=== PATIENT | male | born 1995 | race Caucasian/White ===

== ENCOUNTER 2020-10-15 12:17 | Emergency (ER) | payer OTHER ==
[~2020-10-15 12:17] MED LIST: COLCHICINE0.6 M1 PO
[2020-10-15] MEDS ORDERED: COLCHICINE 0.60.6 MG PO (13:29)
== END 2020-10-15 13:35 | disposition home or self-care (01) ==
LOC: ER1 12:17
DX: M10.072 Idiopathic gout, left ankle and foot (principal)
CPT/HCPCS: 99283

== ENCOUNTER 2020-10-19 13:06 | Emergency (ER) | payer OTHER ==
[~2020-10-19 13:06] MED LIST changes: +COLCHICINE 0.60.6 MG PO
== END 2020-10-19 13:40 | disposition left against medical advice (07) ==
LOC: ER1 13:06
DX: M10.9 Gout, unspecified (principal); Z53.21 Procedure and treatment not carried out due to patient leaving prior to being seen by health care provider

== ENCOUNTER → 2020-10-29 | Outpatient (CLI) | payer OTHER | LOC: KOH-I 15:57 | DX: M25.572 Pain in left ankle and joints of left foot (principal); M79.672 Pain in left foot; M25.472 Effusion, left ankle | CPT/HCPCS: 73610; 73630 ==